=== PATIENT | male | born 1980 | race American Indian/Alaskan Native ===

== ENCOUNTER 2019-02-16 17:58 | Emergency (ER) | payer SELFPAY ==
[2019-02-16 20:05] VITALS: BP 128/82
--- NOTE | 2019-02-16 20:22 | Emergency Department Report ---
Chief Complaint: Upper Respiratory Infection Stated Complaint: COLD SYM Time Seen by Provider: 02/16/19 20:02 - HPI History of Present Illness: This is a 38 y.o. M. that presents to the ER with cough and congestion for 1 week. He is taking - ROS Review of Systems: ROS: Stated complaint: cough and congestion Other details as noted in HPI Constitutional: chills ENT: congestion. denies: ear pain, throat pain Respiratory: cough. denies: shortness of breath, SOB with exertion, wheezing Cardiovascular: denies: palpitations, chest pain Gastrointestinal: denies: abdominal pain, nausea, diarrhea Musculoskeletal: denies: back pain, joint swelling, arthralgia Skin: denies: rash, lesions Neurological: denies: headache, weakness, paresthesias Psychiatric: denies: anxiety, depression - Exam Vital Signs: Vital Signs 02/16/19 20:02 Temperature 98.2 F Pulse Rate 93 H Respiratory 18 Rate Blood Pressure 128/82 O2 Sat by Pulse 99 Oximetry Physical Exam: General: Vital signs noted. No distress. Alert and acting appropriately. HEENT: Yes Moist Mucous Membranes, Yes Rhinorrhea (turbinates mildly congested with clear discharge), No pharynx Erythema (uvula midline), No Pharyngeal Exudates, No Conjuctival Injection, No Frontal Tenderness, No Maxillary Tenderness Ear: Neither TM Bulge, Neither TM Erythema, Neither EAC Pain, Neither EAC Discharge, Neither Cerumen Impaction Neck: Yes Supple, No Adenopathy Lungs: Yes Good Air Exchange, No Wheezes, No Ronchi, No Stridor, No Cough, No Labored Respirations, No Retractions, No Use of Accessory Muscles, No Other Abnormal Lung Sounds Heart: Yes Regular, No Murmur Abdomen: Yes Normal Bowel Sounds, No Tenderness, No Peritoneal Signs Skin: No Rash, No Eczema Neurologic: Alert and oriented, no deficits. MSE screening note: Focused history and physical exam performed. Due to findings the following was ordered: ED Medical Decision Making - Medical Decision Making Patient is stable and examined by me. Vitals are normal. No significant past medical history. No signs of distress noted. This is a non-emergent complaint. On exam the posterior pharynx erythema, mild congestion with clear discharge which is susceptible of URI. However, the patient has normal vital signs, no active vomiting, and lungs are clear. No signs of influenza or pneumonia. Instructed to take OTC cold and flu medication for symptomatic relief. Referrals to PCP for follow up. Patient informed of ER plan of care and agree with the plan. Instructed to follow-up with primary care doctor in 2-3 days or return to the emergency room with worsening symptoms. ED Disposition for MSE Clinical Impression: Feared complaint without diagnosis Disposition: DC- TO HOME OR SELFCARE Is pt being admited?: No Condition: Stable Instructions: Upper Respiratory Infection (ED), Cold Symptoms (ED) Additional Instructions: Take robitussin DM, theraflu, or sudafed for symptomatic relief. Wash hands frequently. Increase fluid intake. Follow-up with your primary care doctor for further evaluation. Return to the emergency room if worsening symptoms. Referrals: [facility] [Outside] - 3-5 Days [facility] [Outside] - 3-5 Days [facility] [Outside] - 3-5 Days Time of Disposition: 20:35
== END 2019-02-16 20:35 | disposition home or self-care (01) ==
LOC: ED 17:58
DX: Z71.1 Person with feared health complaint in whom no diagnosis is made (principal)
CPT/HCPCS: 99282